=== PATIENT | female | born 2005 | race Caucasian/White ===

== ENCOUNTER 2025-01-10 09:15 | Emergency (ER) | payer SELFPAY ==
[2025-01-10] VITALS (7 sets, daily range): BP systolic 118–146; BP diastolic 48–80; PULSE 72–85; RESP 15–16; TEMP 36.3–36.9; O2SAT 94–100; BMI 44.8
--- NOTE | ~2025-01-10 | XR_ITS ---
EXAMINATION: XR CHEST CLINICAL INFORMATION: Syncope. Reportedly positive PPD skin test COMPARISON: None available. TECHNIQUE: 2 views of the chest were obtained. FINDINGS: No significant abnormality is noted involving the heart, lungs, mediastinum, bony thorax or soft tissues. XR/XR chest 2V IMPRESSION: No acute disease Electronically signed by: Marvin Osei MD 01/10/2025 10:47 AM [facility]
--- NOTE | ~2025-01-10 | CT_ITS ---
EXAMINATION: CT HEAD WITHOUT CONTRAST CLINICAL INFORMATION: syncope, +HS COMPARISON: None available. TECHNIQUE: Contiguous axial imaging was performed from the skull base to vertex without intravenous administration of contrast. This CT examination was performed using dose optimization techniques as appropriate, variously including the following: *Automated exposure control *Adjustment of mA and/or kV according to patient size (this includes techniques or standardized protocols for targeted exams where dose is matched to indication/reason for exam; i.e. extremities or head) *Use of iterative reconstruction technique DLP: 619 mGy-cm FINDINGS: Bony calvarium is intact. No acute intracranial hemorrhage, mass effect, midline shift, hydrocephalus or herniation. [place]-white matter differentiation is normal. Posterior cranial fossa contents demonstrated no gross hemorrhage or mass effect. Normal position of the cerebellar tonsils. Prominence of the extra-axial CSF spaces in cerebral sulci involving the middle frontal gyri, right greater than the left side. No air-fluid levels in the paranasal sinuses. Tympanic cavities and mastoid cells are aerated. CT/CT head/brain wo IV con IMPRESSION: No acute fracture, bony calvarium. No acute intracranial hemorrhage. Consider further imaging evaluation with MRI brain. Electronically signed by: Tani Canchola MD 01/10/2025 11:05 AM [facility]
--- NOTE | 2025-01-10 10:01 | ED.SYNCOPE ---
HPI - Syncope General Chief Complaint: Syncope Stated Complaint: fainted w/ headstrike Time Seen by Provider: 01/10/25 10:00 Source: patient, RN notes reviewed and old records reviewed Mode of arrival: ambulatory History of Present Illness ED Provider: Chasity Askew PA-C HPI narrative: 19-year-old female with no significant past medical history presenting to the ED sent from [facility] s/p +PPD skin test & syncopal episode [employer]. Patient states she came here from [facility] for pharmacy program, had PPD skin testing for school, went back for reading today and was told test was positive. States afterwards provider said she would need labs - patient admits she has great fear of needles and this made her very anxious/nervous and she syncopized with + head strike. Denies anticoagulation use. Denies prior history of positive PPD skin testing, known vaccination, travel out of the country, fever, chills, night sweats, cough, SOB, CP Related Data Allergies Allergy/AdvReac Type Severity Reaction Status Date / Time No Known Allergies Allergy Verified 01/10/25 09:24 Review of Systems Review of Systems: Yes all other systems are reviewed and are negative Constitutional: Constitutional: Reports as per HPI Neurologic: Denies Abnormal speech present [facility] Past Medical History Attestation statement: The following information was validated with the patient. Source: old records reviewed Physical Exam Vital Signs: Vital Signs: Last Vital Signs Temp 98.3 F 01/10/25 12:48 Pulse 80 01/10/25 12:48 Resp 16 01/10/25 12:48 BP 132/80 01/10/25 12:48 Pulse Ox 100 01/10/25 12:48 O2 Del Method Room Air 01/10/25 12:48 BMI result Body Mass Index 44.8 Const: General: cooperative, healthy appearing and no acute distress Orientation/consciousness: patient oriented x3 Limitations: no limitations HEENT: Head: Yes normal to inspection and Yes atraumatic Ears: hearing grossly normal bilaterally General nose exam: Normal external nose present Face and sinus: Yes normal facial exam Mouth: Normal oral and palatal mucosa present Throat: Yes posterior oropharynx normal and Yes uvula midline Eyes: General: appearance normal, both eyes and all related structures Pupils: Equal, round and reactive pupils present EOM: EOMs intact bilaterally Neck: Neck: Yes normal visual inspection and Yes no meningeal signs Resp: Effort & Inspection: normal respiratory effort and no respiratory distress Auscultation: clear to auscultation bilaterally, no crackles, no rales, no rhonchi and no wheezes Cardio: Rate: regular rate Heart sounds: S1 normal heart sound present and S2 normal heart sound present GI: Inspection: Yes normal to inspection Palpation (GI): Soft to palpation, nontender and no guarding Skin: Other: PPD skin testing to LUE without induration or surrounding erythema Rashes: no rashes Wounds: no wounds Neuro: General: patient oriented x3, gait normal, tone normal, moves all extremities, no meningeal signs, no focal motor deficits and CN's II-XI intact bilaterally Cranial nerves: Yes CN's II-XII intact bilaterally and Yes Equal, round and reactive pupils present Cognition (Neuro): normal cognition Speech: No Abnormal speech present Gait exam (Neuro): Normal gait present Motor exam (neuro): 5/5 motor strength present throughout Extrem: General: Yes normal to inspection Course Course Course Narrative: CT head/brain wo IV con IMPRESSION: No acute fracture, bony calvarium. No acute intracranial hemorrhage. Consider further imaging evaluation with MRI brain. XR chest 2V IMPRESSION: No acute disease -orthostatic vital signs negative. > patient difficult stick, 2 attempts were unsuccessful at getting patient's labs. Patient now refusing additional lab draws. Discussed with patient's she needs close follow up with PCP/clinic at [facility]. discussed that we interpreted the PPD test as negative here in the emergency department today Results discussed with patient including worrisome signs and symptoms and strict return precautions, and when to return to the emergency department. They verbalized understanding and feel safe for discharge at this time. 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 On exam vital signs stable, NAD, nontoxic appearing, negative PPD skin testing to LUE - unclear why patient was told dose was a positive testing. There is no induration. No focal deficits. Concern for syncope due to increased anxiety/fear of needles. Lower suspicion for CVA/TIA, ACS/dissection, metabolic or infectious etiologies Plan: EKG, labs, CXR, head CT, orthostatics Please refer to course for remaining clinical decision making, interpretation of labs/imaging results, and discussions with consultants and/or family members. Differential Diagnosis Differential Diagnoses: The differential diagnosis associated with the presentation includes As above Admission/Observation Consideration of admission/observation: Escalation of care including admission/observation considered Lab Data MDM Lab Attestation statement: I reviewed the patient's lab results. Independent Interpretation I performed an independent interpretation of an: EKG, Plain X-Ray and CT Scan Radiology Impression Discussion of test interpretation with radiology: I have reviewed the radiologist's reading. External Record Review External record reviewed: Inpatient record, Office record, Outpatient record, Prior outpatient labs, Prior outpatient radiology, Primary care record and Outside ED record Tests considered The following testing was considered but not selected: As above Prescription Management I considered prescription management with: Other Chronic Conditions Patient?s care impacted by: Other Social Determinants Patient?s care significantly limited by Social Determinants of Health including: Other Social Determinant of Health Discharge Plan Discharge Clinical Impression: Vasovagal syncope Patient Disposition: Home, Self-Care Instructions: Syncope (DC) Additional Instructions: Your chest x-ray is unremarkable Your head CT is also unremarkable We interpreted your PPD skin testing as negative, please follow-up with facility that performed testing and primary care provider If you develop any cough, chest pain, shortness of breath, passing out episodes, lightheadedness/dizziness, fever, chills, weight loss return to the ED immediately Referrals: [facility] [Provider Group, Infectious Disease] - 1 week Referral Note: as needed [facility] [Provider Group] - 1 day Interventions: ED Discharge Assessment Last Done: 01/10/25 12:48 Discharge Date/Time: 01/10/25 13:00 Print Language: [place]
--- NOTE | 2025-01-10 10:26 | ECG_ITS ---
Test Reason : SYNCOPE Blood Pressure : */* mmHG Vent. Rate : 78 BPM Atrial Rate : 78 BPM P-R Int : 142 ms QRS Dur : 112 ms QT Int : 380 ms P-R-T Axes : 49 58 40 degrees QTcB Int : 433 ms Normal sinus rhythm with sinus arrhythmia Incomplete right bundle branch block Borderline ECG No previous ECGs available Referred By: Chasity Askew Electronically Signed By: CHU MONTILLA
--- NOTE | 2025-01-10 11:44 | MHC.EDTECH ---
Addendum entered by Cate Alegria 01/10/25 12:13: Attempted to obtain labs one more time unsuccessfully. Pt is refusing any additional attempts by this tech and any other staff at this time. Pt educated on the importance of blood draws. RN aware. Original Note: Attempted lab draw on Pt. She was a difficult stick. Unable to obtain labs at this time. Pt is very anxious and is requesting a few minutes to talk to her mom. RN aware.
== END 2025-01-10 13:00 | disposition home or self-care (01) ==
PROVIDERS: Emergency Provider Emergency Medicine
DX: R55 Syncope and collapse (principal); F41.9 Anxiety disorder, unspecified; I49.8 Other specified cardiac arrhythmias; R51.9 Headache, unspecified; I45.10 Unspecified right bundle-branch block
CPT/HCPCS: 70450; 71046; 93005; 99284; 99285

== ENCOUNTER → 2025-01-10 10:26 | Outpatient (BNV) | payer SELFPAY | PROVIDERS: Visit Provider Radiology Diagnostic Radiology | DX: S09.90XA Unspecified injury of head, initial encounter (principal); R55 Syncope and collapse | CPT/HCPCS: 70450; 71046 ==

== ENCOUNTER → 2025-01-10 10:26 | Outpatient (BNV) | payer SELFPAY | PROVIDERS: Emergency Provider Emergency Medicine; Visit Provider Internal Medicine | DX: I45.10 Unspecified right bundle-branch block (principal) | CPT/HCPCS: 93010 ==